=== PATIENT | male | born 1990 | race Caucasian/White ===

== ENCOUNTER 2023-02-14 15:29 | Emergency (ER) | payer OTHER, SELFPAY ==
[2023-02-14 15:35] VITALS: BP 119/95; PULSE 105; RESP 16; TEMP 37.3; O2SAT 95; BMI 27.4
[2023-02-14 15:45] LABS: Glucometer 301 mg/dL (74-106)
--- NOTE | 2023-02-14 15:47 | ED.GENADUL1 ---
HPI - General Adult General Chief complaint: Weakness Stated complaint: GENERAL WEAKNESS Time Seen by Provider: 02/14/23 15:47 Mode of arrival: walk-in Limitations: no limitations History of Present Illness HPI narrative: this patient's here to have his blood sugar checked. He recently discovered that he is a diabetic at a local hospital. They gave him IV fluids and put him on oral diabetic pill and told and follow-up the clinic. His family thought they looked a little pale today and they told him to go the hospital. On his 1st Emergency Room visit to the other facility his blood sugar was above eight hundred. He received treatment and was sent home and any rechecked over there yesterday and was down about three hundred. He does not have a diabetic testing strips at home. He is otherwise been healthy, however over the last several years he's been thirsty urinating and hungry more than usual and eats a lot of sweets. Related Data Home Medications Medication Instructions Recorded Confirmed metformin 500 mg 24 hr 500 mg PO DAILY 02/14/23 02/14/23 tablet,extended release (Glumetza) Allergies Allergy/AdvReac Type Severity Reaction Status Date / Time No Known Drug Allergies Allergy Verified 02/14/23 15:39 PFSH PFSH Social History Smoking status: Current every day smoker Exam Narrative Exam Narrative: very pleasant gentleman here with his female cancer researcher. Vital signs are as noted. Cognition and mental status are normal. He just wanted come in because he has not been able to check his sugar at home. We did request charts from his other Emergency Room visits Respiratory shows no wheezes rales or rhonchi with normal respiratory rate pattern. Abdomen is soft and supple no peritoneal findings guarding or rebound. Extremities are normal with no edema phlebitis or evidence of infectious process. Neurological cognition mental status cranial nerves and motor skills are all normal. Constitutional Vital Signs - 24 hr 02/14/23 15:35 Temperature 99.1 F Pulse Rate [Monitor] 105 H Respiratory Rate 16 Blood Pressure [Left Arm] 119/95 H Pulse Oximetry 95 Oxygen Delivery Method Room Air Course Vital Signs Vital signs: Vital Signs Temperature 99.1 F 02/14/23 15:35 Pulse Rate 105 H 02/14/23 15:35 Respiratory Rate 16 02/14/23 15:35 Blood Pressure 119/95 H 02/14/23 15:35 Pulse Oximetry 95 02/14/23 15:35 Oxygen Delivery Method Room Air 02/14/23 15:35 Temperature 99.1 F 02/14/23 15:35 Pulse Rate 105 H 02/14/23 15:35 Respiratory Rate 16 02/14/23 15:35 Blood Pressure 119/95 H 02/14/23 15:35 Pulse Oximetry 95 02/14/23 15:35 Oxygen Delivery Method Room Air 02/14/23 15:35 Medical Decision Making MDM Narrative Medical decision making narrative: the patient is new onset diabetic who received what seems be appropriate treatment recently is now on metformin and he has an appointment see a family doctor tomorrow. We will give him a copy of his lab results today. I have no further treatment recommendations. He seems motivated already changes dietary habits which included a lot of sugary beverages and dietary products and these are a change in his eating habits. He understands the importance of following up Lab Data Labs: Lab Results 02/14/23 02/14/23 Range/Units 15:43 16:05 WBC 9.7 (4.0-11.0) 10^3/uL RBC 5.19 (4.70-6.10) 10^6/uL Hgb 15.9 (14.0-18.0) g/dL Hct 43.5 (42.0-54.0) % MCV 83.8 (80.0-94.0) fL MCH 30.6 (25.9-34.0) pg MCHC 36.6 H (29.9-35.2) g/dL RDW 11.6 (11.0-15.0) % Plt Count 244 (150-450) 10^3/uL MPV 10.7 (9.5-13.5) fL Neut % (Auto) 67.2 (43.0-75.0) % Lymph % (Auto) 22.9 (20.5-60.0) % [place] % (Auto) 4.5 (1.7-12.0) % Eos % (Auto) 4.0 (0.9-7.0) % Baso % (Auto) 0.7 (0.2-2.0) % Neut # (Auto) 6.5 (1.4-6.5) 10^3/uL Lymph # (Auto) 2.2 (1.2-3.8) 10^3/uL [place] # (Auto) 0.4 (0.3-0.8) 10^3/uL Eos # (Auto) 0.4 (0.0-0.7) 10^3/uL Baso # (Auto) 0.1 (0.0-0.1) 10^3/uL Abs Immat Gran (auto) 0.07 H (0.00-0.03) 10^3/uL Imm/Tot Granulo (auto) 0.7 H (0.0-0.5) % Sodium 134 L (136-145) mmol/L Potassium 3.8 (3.5-5.1) mmol/L Chloride 100 (98-107) mmol/L Carbon Dioxide 25.0 (21.0-32.0) mmol/L Anion Gap 12.8 BUN 17.0 (7.0-18.0) mg/dL Creatinine 0.90 (0.70-1.30) mg/dL Est GFR ( Amer) >60 (>=60) Est GFR (Non-Af Amer) >60 (>=60) BUN/Creatinine Ratio 18.9 Glucose 341 H (74-106) mg/dL Calcium 9.3 (8.5-10.1) mg/dL Total Bilirubin 0.5 (0.2-1.0) mg/dL AST 17 (15-37) U/L ALT 29 (16-63) U/L Alkaline Phosphatase 70 (46-116) U/L Total Protein 7.5 (6.4-8.2) g/dL Albumin 4.0 (3.4-5.0) g/dL Globulin 3.5 g/dL Albumin/Globulin Ratio 1.1 Lipase 227.0 (73.0-393.0) U/L POC Glucose 301 H (74-106) mg/dL Discharge Plan Discharge Chief Complaint: Weakness Clinical Impression: Diabetes mellitus, new onset Patient Disposition: Home, Self-Care Time of Disposition Decision: 17:07 Prescriptions / Home Meds: No Action metformin [Glumetza] 500 mg tablet,ER jose a.retention 24 hr 500 mg PO DAILY Instructions: Diabetes Type 1: Management (ED) Additional Instructions: continue metformin/good-quality protein and carbohydrate, see her family doctor tomorrow/consider Internet teaching on the [employer] [place] [employer] Stand Alone Forms: Portal Instructions Referrals: Physician,Non-Staff, [Primary Care Provider] - 1 week
[2023-02-14 16:17] LABS: Basophils Absolute Auto 0.1 10^3/uL (0.0-0.1); Basophils Percent Auto 0.7 % (0.2-2.0); Eosinophils Absolute Auto 0.4 10^3/uL (0.0-0.7); Hematocrit 43.5 % (42.0-54.0); Hemoglobin 15.9 g/dL (14.0-18.0); Immature Granulocytes Abs Auto 0.07 10^3/uL (0.00-0.03); Immature Granulocytes Pct Auto 0.7 % (0.0-0.5); Lymphocytes Absolute Auto 2.2 10^3/uL (1.2-3.8); Lymphocytes Percent Auto 22.9 % (20.5-60.0); Mean Corpuscular HGB Conc 36.6 g/dL (29.9-35.2); Mean Corpuscular Hemoglobin 30.6 pg (25.9-34.0); Mean Corpuscular Volume 83.8 fL (80.0-94.0); Mean Platelet Volume 10.7 fL (9.5-13.5); Monocytes Absolute Auto 0.4 10^3/uL (0.3-0.8); Monocytes Percent Auto 4.5 % (1.7-12.0); Neutrophils Absolute Auto 6.5 10^3/uL (1.4-6.5); Neutrophils Percent Auto 67.2 % (43.0-75.0); Platelet Count 244 10^3/uL (150-450); Red Blood Count 5.19 10^6/uL (4.70-6.10); Red Cell Distribution Width 11.6 % (11.0-15.0); White Blood Count 9.7 10^3/uL (4.0-11.0)
[2023-02-14 16:34] LABS: Alanine Aminotransferase 29 U/L (16-63); Albumin Globulin Ratio 1.1; Alkaline Phosphatase 70 U/L (46-116); Anion Gap 12.8; Aspartate Amino Transferase 17 U/L (15-37); BUN Creatinine Ratio 18.9; Bilirubin Total 0.5 mg/dL (0.2-1.0); Calcium 9.3 mg/dL (8.5-10.1); Chloride 100 mmol/L (98-107); Estimated GFR (African America >60 (>=60); Estimated GFR (Non-African Ame >60 (>=60); Globulin 3.5 g/dL; Glucose 341 mg/dL (74-106); Potassium 3.8 mmol/L (3.5-5.1); Sodium 134 mmol/L (136-145); Total Protein 7.5 g/dL (6.4-8.2)
[2023-02-14 17:21] VITALS: BP 133/89; PULSE 89; RESP 14; O2SAT 95
== END 2023-02-14 17:25 | disposition home or self-care (01) ==
PROVIDERS: Emergency Provider Emergency Medicine Emergency Medical Services
DX: E11.9 Type 2 diabetes mellitus without complications (principal); F17.210 Nicotine dependence, cigarettes, uncomplicated
CPT/HCPCS: 36415; 80053; 83690; 85025; 99283